=== PATIENT | female | born 1995 | race African-American/Black ===

== ENCOUNTER 2024-12-24 23:42 | Emergency (ER) | payer OTHER, SELFPAY ==
--- NOTE | ~2024-12-24 | CT_ITS ---
Non-contrast Head CT History: Headache, blurry vision Technique: Axial non-contrast imaging of the brain was performed. Dose reduction technique was used on this scan by utilizing automated exposure control and iterative reconstruction technique. The dose -length product (DLP) was 605.33 mGy-cm. Findings: There is no evidence of intracranial hemorrhage, mass lesion, or acute infarct. Brain par enchyma appears normal. The ventricles and subarachnoid spaces are normal in size. The calvarium ap pears normal. The visualized paranasal sinuses and mastoid air cells are clear. Impression: No significant abnormality seen. Reviewed, dictated and finalized at location . Impression: No significant abnormality seen.
--- NOTE | ~2024-12-24 | XR_ITS ---
Clinical Indication: Chest pain PA and lateral views of the chest: Comparison: None Findings: The lungs are clear, without evidence of focal consolidation or pleural effusion. Cardiome diastinal silhouette is within normal limits. Bones and soft tissues are unremarkable. Impression: Normal chest. Reviewed, dictated and finalized at location . Impression: Normal chest.
[2024-12-24 23:44] VITALS: BP 114/65; PULSE 101; RESP 20; TEMP 36.7; O2SAT 99
--- NOTE | 2024-12-24 23:50 | ECG_ITS ---
Test Date: 2024-12-24 23:54:07 Measurements Intervals [place] Rate: 81 P: 56 HI: 179 QRS: 72 QRSD: 89 T: 68 QT: 359 QTc: 418 Interpretive Statements SINUS RHYTHM NORMAL ECG No previous ECG available for comparison Electronically Signed On 12-25-2024 06:27:03 CDT by Calvin Greco D.O.
--- NOTE | 2024-12-25 01:17 | ED.CHESTPAIN ---
HPI - Chest Pain General Chief Complaint: Chest Pain Stated Complaint: CORREIA and chest pain Time Seen by Provider: 12/25/24 00:52 Source: patient Mode of arrival: EMS Limitations: no limitations History of Present Illness HPI narrative: Patient is a 29 y/o female who presents to the ED via EMS with report of CP/CORREIA. Patient reports she has had constant L sided CORREIA for past 3 days. She has hx of headaches earlier this year while with her daughter. She states today the pain became worse and she began having some blurry vision. She also endorses nausea, photophobia/phonophobia. Denies focal numbness or weakness. She has not taken anything for pain today. She also reports intermittent L sided chest pain for the past few days. States pain intermittently radiates down L arm. Reports some tingling in L arm, SOB. Denies fevers, cough or cold sx's. Related Data Allergies Allergy/AdvReac Type Severity Reaction Status Date / Time amoxicillin Allergy Difficulty Verified 12/25/24 01:51 Breathing Review of Systems Review of Systems: All systems reviewed & are unremarkable except as noted in HPI. All systems reviewed & are unremarkable except as noted in HPI and below Exam Narrative: GENERAL: Well appearing, well-nourished, non-toxic, in no acute distress. HEAD: Normocephalic, atraumatic. EYES: PERRL/EOMI, conjunctiva clear. No nystagmus NECK: No meningeal signs RESPIRATORY: Airway patent, respirations nonlabored. Clear to auscultation bilaterally, no rales, rhonchi, wheezing. CARDIOVASCULAR: Regular rate and rhythm without murmurs, rubs, or gallops. MUSCULOSKELETAL: Moves all extremities. No gross deformities. No significant chest wall tenderness to palpation. No peripheral edema. SKIN: Warm, dry, normal color. NEURO: A&O X3. Speech clear. Cranial nerves II-XII grossly intact. Steady gait. No ataxic movements. PSYCHIATRIC: Appropriate mood and affect. Normal interaction. Course Vital Signs Vital signs: Vital Signs Temperature 98.1 F 12/24/24 23:44 Pulse Rate 101 H 12/24/24 23:44 Respiratory Rate 20 12/24/24 23:44 Blood Pressure 114/65 12/24/24 23:44 Pulse Oximetry 99 12/24/24 23:44 Oxygen Delivery Room Air 12/24/24 23:44 Temperature 98.1 F 12/24/24 23:44 Pulse Rate 83 12/25/24 01:22 Respiratory Rate 20 12/24/24 23:44 Blood Pressure 114/65 12/24/24 23:44 Pulse Oximetry 97 12/25/24 01:26 Oxygen Delivery Room Air 12/25/24 01:26 MDM - Chest Pain MDM Narrative Medical decision making narrative: Patient presented to ED with 3 day hx of CORREIA and CP. Vital signs are stable upon arrival. Patient was borderline tachycardic initially, but this was resolved by the time of my evaluation. She is neurologically intact. No focal deficits. CT brain obtained and negative. Patient given migraine cocktail. EKG with NSR, no concerning ST changes. Troponin undetectable. Very low suspicion for ACS. Pain has been ongoing for the last 3 days. D-dimer WNL. HEART score =0. No signficant RFs for CAD Remainder basic laboratory studies are unremarkable. Chest x-ray interpreted by myself is clear. No focal findings. On re-evaluation, patient feeling improved. CORREIA significantly improved. Feel patient is safe for d/c home at this time. Advised to continue Tylenol/ibuprofen, recommended low light/low stimulus environment, limiting screen time. Recommended follow-up with PCP for further evaluation. Given strict return precautions. She agrees with plan. Discharged in stable condition. Medical Records Data Attestation: I reviewed the patient's medical records. Lab Data Attestation: I reviewed the patient's lab results. 12/24/24 01:17 12/25/24 01:17 Labs: Lab Results 12/24/24 12/25/24 12/25/24 Range/Units 01:17 01:17 01:17 WBC 8.4 (4.5-10.0) K/mm3 RBC 3.81 L (4.2-5.4) M/mm3 Hgb 12.0 (12.0-15.0) g/dL Hct 36.3 L (37.0-47.0) % MCV 95.3 (80-100) fl MCH 31.5 (26-34) pg MCHC 33.1 (32-36) g/dl RDW 13.5 (11.5-14.5) % Plt Count 345 (150-375) k/mm3 MPV 9.6 (7.4-10.4) fl Immature Gran % (Auto) 0.1 (0-0.5) % Neut % (Auto) 64.9 (45.5-73.1) % Lymph % (Auto) 24.4 (18.3-44.2) % [place] % (Auto) 8.8 H (2.6-8.5) % Eos % (Auto) 1.3 (0-4.4) % Baso % (Auto) 0.5 (0.2-1.2) % Lymph # (Auto) 2.05 (0.9-3.2) K/mm3 [place] # (Auto) 0.7 H (0.1-0.6) K/mm3 Eos # (Auto) 0.1 (0-0.3) K/mm3 Baso # (Auto) 0.0 (0.0-0.1) K/mm3 Abs Immat Gran (auto) 0.01 (0.00-0.031) K/mm3 Absolute Neuts (auto) 5.4 (1.3-6.7) K/mm3 Absolute Nucleated RBC 0.000 (0.0-0.012) K/mm3 Nucleated RBC % 0.0 (0.0-0.2) % PT 12.8 (11.1-14.7) Seconds INR 1.0 APTT 25.1 (22.3-36.8) Seconds D-Dimer < 0.27 Cancelled (<0.48) ug/mL Sodium 138 (137-145) mmol/L Potassium 4.0 (3.4-5.0) mmol/L Chloride 108 H (98-107) mmol/L Carbon Dioxide 24 (22-30) mmol/L Anion Gap 6 (4-12) mmol/L BUN 14 (7-17) mg/dL Creatinine 0.95 (0.7-1.0) mg/dL Estim Creat Clear Calc Not Reportable Estimated GFR > 60 (59 - ) Glucose 96 (65-110) mg/dL Calcium 9.1 (8.4-10.2) mg/dL Total Bilirubin 0.2 (0.2-1.3) mg/dL AST 23 (14-36) U/L ALT 18 (6-35) U/L Alkaline Phosphatase 77 (38-126) U/L Troponin I < 0.012 (0.000-0.034) ng/mL Total Protein 7.1 (6.3-8.2) g/dL Albumin 4.1 (3.5-5.1) g/dL Lipase 102 (23-300) U/L Imaging Data Attestation: I personally reviewed and interpreted this imaging study as follows: My impression: CXR: No acute cardiopulmonary process. Radiologist's impression: STAT RAD CT brain: No acute hemorrhage, hydrocephalus, or mass effect. Bones are unremarkable. No air-fluid levels in paranasal sinuses. Mastoid clear. ECG Data EKG #1: Attestation: I personally reviewed and interpreted this ECG as follows: ECG completion date: 12/24/24 ECG completion time: 23:54 EKG Interpretation: normal rate (81), sinus rhythm and no ST changes Discharge Plan Discharge Clinical Impression: Atypical chest pain Migraine Qualifiers: Migraine type: unspecified Status migrainosus presence: without status migrainosus Intractability: not intractable Qualified Code(s): G43.909 - Migraine, unspecified, not intractable, without status migrainosus Patient Disposition: Home Condition: Stable Instructions: Antibiotic Form, Chest Pain (ED), Migraine Headache (ED), Acute Headache (ED) Additional Instructions: Your work up here was reassuring. Continue to stay well hydrated at home, get plenty of rest, recommend low stress/stimulus/light environment, limited screen time. Continue Tylenol and Ibuprofen as needed for further pain. Follow-up with your primary care doctor for further evaluation. Return to ED for worsening or severe pain, difficulty breathing, unable to keep down food or drink, severe dizziness, passing out, numbness or weakness of arm or leg, or any other symptoms of concern. Patient Language: [place]ic Follow-up/Referrals: Robles Schreiber MD [Physician] - (PRIMARY CARE) PHYSICIAN,MOBILITY ENGINEER [Primary Care Provider] - Stand Alone Forms: Work/School Release IP Time of Disposition: 02:38 Quality HEART score for chest pain patients History: slightly suspicious ECG: normal Age: < or = to 45 years Risk factors: no risk factors known Troponin: < or = to 1x normal limit Heart score: 0
[2024-12-25 01:22] VITALS: PULSE 83
[2024-12-25 01:26] VITALS: O2SAT 97
[2024-12-25 01:38] LABS: Prothrombin Time 12.8 Seconds (11.1-14.7)
[2024-12-25 01:40] LABS: Partial Thromboplastin Time 25.1 Seconds (22.3-36.8)
--- OUTSIDE RECORDS SUMMARY | 2024-12-25 01:41 | XMS_ITS | Referral Summary ---
Author Organization [facility] Address [address] [place] [address] Care Team Providers Care Wardsperson Name Role Phone Daniel Camara MD Unavailable Chris Grant MD Unavailable [phone] Daniel Camara MD Primary Care Provider [phone] Encounters Date Type Department Care Team Description 12/18/2024 Results Follow-Up [facility] [address] [place] [address] Panchito Feldman MD Hepatitis B Surface Antigen Blood, Hepatitis C antibody Blood, RPR Blood, Additional followed-up results: 4 12/17/2024 6:56 PM CDT - 12/17/2024 11:59 PM CDT Hospital Encounter [facility] [address] [place] [address] Abnormal uterine bleeding (AUB); Screening examination for STI Discharge Disposition: Discharge to home or self care 12/17/2024 1:55 PM CDT Lab [facility] [address] [place], [place] [id number] Screening examination for STI; Abnormal uterine bleeding (AUB) 12/17/2024 11:20 AM CDT Lab [place] [address] [facility] [address] [place] [address] Menorrhagia with regular cycle 12/17/2024 1:00 PM CDT Office Visit [facility] Obstetrics and Gynecology [address] 1st [address] [place] [address] Panchito Feldman MD Abnormal uterine bleeding (AUB) (Primary Dx); Screening examination for STI; PID (pelvic inflammatory disease) 12/13/2024 Telephone [facility] Obstetrics and Gynecology [address] [facility] 7th [address] [place] [id number] Jaspal Hanson RN HMB from Last 3 Months Allergies Active Allergy Reactions Criticality Noted Date Comments Amoxicillin Chest tightness Medium 07/26/2022 Medications doxylamine-pyrido xine, vit B6, (DICLEGIS) 10-10 mg tabletIndications :Supervision of other normal , antepartum Take 1 tablet by mouth nightly 30 tablet 3 06/05/20 24 Active Additional Information Patient not taking.Reported on 12/17/2024 diphenhydrAMINE (BENADRYL) 25 mg capsule Take 1 tablet/capsule (25 mg total) by mouth every 6 (six) hours as needed for itching 30 capsule 07/14/20 24 Active Additional Information Patient not taking.Reported on 12/17/2024 metoclopramide (REGLAN) 10 mg tablet Take 1 tablet (10 mg total) by mouth every 8 (eight) hours as needed (Headache) for up to 30 doses 30 tablet 07/14/20 24 Active Additional Information Patient not taking.Reported on 12/17/2024 norethindrone (MICRONOR) 0.35 mg tabletIndications : Contraception Take 1 tablet (0.35 mg total) by mouth daily 1 po qd at same time of day 84 tablet 07/28/19 25 Active Additional Information Patient not taking.Reported on 12/17/2024 ferrous sulfate 325 mg (65 mg of elemental iron) tablet Take 1 tablet (325 mg total) by mouth daily with breakfast 30 tablet 07/30/19 25 026 Active Additional Information Patient not taking.Reported on 12/17/2024 docusate sodium (COLACE) 100 mg capsuleIndication s:constipation,St ool Softener Take 1 capsule (100 mg total) by mouth 2 (two) times a day 60 capsule 07/29/19 25 Active Additional Information Patient not taking.Reported on 12/17/2024 lidocaine (GLYDO) 2 % jelly in applicator Apply 5 mL (100 mg total) topically 2 (two) times a day as needed for other (perineal pain stitches) 1 applicator 07/29/19 25 Active Additional Information Patient not taking.Reported on 12/17/2024 PNV with [id number] 27 mg iron- 1 mg tabletIndications :Vitamin Deficiency Prevention Take 1 tablet by mouth daily 30 tablet 11 07/30/19 25 026 Active polyethylene glycol (MIRALAX) 17 gram/dose bulk powderIndications :constipation Take 17 g by mouth daily 510 g 07/29/19 25 Active Additional Information Patient not taking.Reported on 12/17/2024 cyclobenzaprine (FLEXERIL) 5 mg tablet Take 1 tablet (5 mg total) by mouth 3 (three) times a day as needed for muscle spasms 60 tablet 07/29/19 25 Active Additional Information Patient not taking.Reported on 12/17/2024 levoFLOXacin (LEVAQUIN) 500 mg tabletIndications :Urinary Tract/Genitourina ry Infection Take 1 tablet (500 mg total) by mouth daily for 14 days 14 tablet 12/18/19 25 025 Active metroNIDAZOLE (FLAGYL) 500 mg tabletIndications :PID (pelvic inflammatory disease) Take 1 tablet (500 mg total) by mouth 2 (two) times a day for 14 days 28 tablet 12/18/19 25 025 Active Active Problems Problem Noted Date Diagnosed Date Pelvic pressure in female 06/05/2024 Assessment & Plan (06/05/2024 1:29 PM ESCORT SERVICE ATTENDANT): Exam performed today significant for physiologic discharge External os 1 cm but internal os closed Swab for infection offered and collected Nontender abdomen Recommended support belt Reviewed [facility] precautions for R/o PTL Other chest pain 10/30/2023 Assessment & Plan (10/30/2023 2:32 PM CDT): -Reports chest pain that is not happening currently or reproducible on exam -Has shortness of breath with walking -BP 108/68 with otherwise unremarkable CV & pulm exam today -CBC, CMP, TSH, EKG ordered -Advised to follow up with PCP for further evaluation and management -ER return precautions reviewed with patient Marylin orozcoa 02/19/2019 Sinusitis 02/19/2019 Resolved Problems Problem Noted Date Diagnosed Date Resolved Date care following vaginal delivery 07/27/2024 12/17/2024 Overview (07/30/2024): # ID: Afebrile. No signs/symptoms of infection. # Heme: Hgb 11.7> EBL 300 mL. Hemodynamically stable. # CV/Pulm: #Gestational hypertension - Blood pressures well controlled on no meds. Asymptomatic, denies CORREIA/RUQ pain/vision changes. CBC/CMP wnl, UPC .103. Enrolled in remote blood pressure monitoring. Received text. # GI/: Tolerating PO. Voiding spontaneously. # Pain: controlled with above regimen # MOC: Progestin-only pills. # MOF: . Urine drug screen not indicated. Patient informed of results: N/A. # Post DVT prophylaxis: The patient has the following MAJOR risk factors none and the following MINOR risk factors BMI 30-39. SCDs ordered for VTE prophylaxis. # Disposition: Follow up to be scheduled with primary OB. Desires discharge home today Service Coverage These phones are service phones and carried 07/02 in house: R1 (first call) [phone] R1 alt (second call) [phone] R4 (Chief) [phone] Encounter for induction of labor 07/26/2024 12/17/2024 History of delivery 06/05/2024 12/17/2024 Assessment & Plan (06/05/2024 1:05 PM ESCORT SERVICE ATTENDANT): pLTCS 02/2018 for NRFHT at 39 wks Interested in TOLAC, reviewed risks and benefits of TOLAC including risk of uterine rupture Supervision of other normal , antepartum 05/23/2024 10/10/2024 Overview (07/19/2024): Pronounced See-ah-vivek -CARLOS @ 30wks, records in media -anatomy pg 12, nml, posterior placenta -h/o pLTCS for failure to progess during labor. 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 Expectant management: [x] Mode of delivery: desire TOLAC [] For C/S bottle of CHG 4% and hand out provided @ 36wks Girl, , undecided on peds Teaching: [x] 1st visit [x] 28-30 week [x] 36 week Assessment & Plan (06/05/2024 1:28 PM ESCORT SERVICE ATTENDANT): - FHT performed today - labs collected by [facility], multiple attempts to get records, will order labs now, pt reports completing the GCT and passing it but will order A1c - Pap NILM, 07/2022, screening in 2025 - GC/CT/trichomonas negative on 04/2024, recollected today given pelvic pressure - Reviewed criteria for ASA 81mg, not taking ASA this , taking a vitamin - Flu and Covid vaccination recommendations reviewed, plan for flu vaccine and Tdap today - Genetic screening not performed - Education on care and expectations provided by OB RN Encounter for general allison valero and advice on contraceptive management 10/30/2023 10/30/2023 Assessment & Plan (10/30/2023 2:28 PM CDT): -We reviewed contraception options, including, but not limited to, condoms, OCP's, contraceptive patch/ring, DepoProvera, sterilization, IUD and Nexplanon. After review of her risks factors, patient would like to consider Nexplanon or IUD. She will contact our office to schedule possible placement in 1-2 months UTI symptoms 10/30/2023 05/23/2024 Assessment & Plan (10/30/2023 2:31 PM CDT): -Dysuria and urine leakage -UA/UCx ordered to rule out UTI. Will treat as indicated. Pap smear for cervical cancer screening 10/12/2023 05/23/2024 Assessment & Plan (10/12/2023 4:52 PM CDT): Previous cytology/HPV/colposcopy/treatment History: -12/2019: Pap NILM -07/2022: Pap NILM Per ASCCP guidelines, repeat Pap smear due in 3 years (07/2025). HPV Vaccine Series: Well woman exam 10/12/2023 10/30/2023 Assessment & Plan (10/30/2023 2:27 PM CDT): -STI screening: GC/CT/Trich swabs today. Desires serum testing; HIV, RPR, HBsAg, HCV Ab labs ordered. -Mammogram: not due until age 40 -Colonoscopy: Not due until age 45 -Dexa: Not due until age 65 -Reviewed AHA recommendation of 150 minutes of moderate-intensity activity per week -Counseled on consuming varied diet rich in whole grains and fruits/vegetables -Covid-19 and influenza vaccination recommendations reviewed, declines fall 2022 vaccines Candidiasis of vagina 02/19/20192019 Increased frequency of urination 02/19/2019 01/10/2020 Encounter for initial prescr iption of contraceptive pills 05/31/2018 01/10/2020 39 weeks gestation of 02/24/2018 01/10/2020 Overview (02/24/2018): #Labor: Admit to L&D. Consents signed and placed in chart. Send CBC/T&S. Initially expectantly managed, now will begin Labor augmentation with oxytocin. #FWB: tracing category II #ID: GBS positive, will start PCN. HIV negative. #Indications for UDS: none #M/B: Plans to breastfeed. Undecided on contraception. 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 May stop growth scans. Co-manage with FCC [x] 1hr GCT at [id number] [] Flu Shot [x] Tdap (27-36wks) 11/29/17 [x] Genetic Screening: negative flk [] Rhogam (if Rh neg): B+ [x] GBS at 36 wks: + [x] information provided [] control method: 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 11/09/2017 01/10/2020 with complication, antepartum 10/21/2017 01/10/2020 Normal 07/22/2017 12/20/2017 Chlamydia 01/10/2020 Overview (01/10/2020): previous PG Immunizations Immunization Administration Dates Next Due DTP 07/09/2002 DTaP 07/28/1999, 9,03/20/1998,12/06 Hep B / HiB 07/28/1999,09/08/1998,1997 Hep B, Adolescent or Pediatric 1995 HiB 03/20/1998 IPV 07/09/2002, 0,07/28/1999,03/20,1997 Influenza, Trivalent, Cell Culture-based MDCK, Preservative Free, Antibiotic Free, Intramuscular 06/05/2024 Influenza, Trivalent, High D ose, Split, Preservative Free, Intramuscular 04/28/2016 MMR 07/30/2024(Deferred: No longer needed),07/09/2002,09/25/1998 RSV, Bivalent, Protein Subun it Rsvpref, Diluent (Abrysvo) 06/22/2024 Tdap 06/05/2024,11/29/2017 Varicella 07/30/2024(Deferred: No longer needed),03/04/2009,09/25/1998 Social History Tobacco Use Types Packs/Day Years Used Date Smoking Tobacco: Never Smokeless Tobacco: Never Tobacco Cessation:Counseling Given: Not Answered Alcohol Use Standard Drinks/Week Comments No 0 (1 standard drink = 0.6 oz pur e alcohol) Social Connection and Isolat ion Panel [NHANES] Answer Date Recorded In a typical week, how many times do you talk on the phone with family, friends, or neighbors? More than three times a week 07/28/2024 How often do you get togethe r with friends or relatives? More than three times a week 07/28/2024 How often do you attend chur or temple services? 1 to 4 times per year 07/28/2024 Do you belong to any clubs o r organizations such as restoration groups, unions, fraternal or athletic groups, or school groups? No 07/28/2024 How often do you attend meet ings of the clubs or organizations you belong to? Never 07/28/2024 Are you , , di vorced, , never , or living with a partner? Never 07/28/2024 AUDIT-C Answer Date Recorded Q1: How often do you have a drink containing alc ohol? Monthly or less 10/12/2023 Q2: How many drinks containi ng alcohol do you have on a typical day when you are drinking? 1 or 2 10/12/2023 Q3: How often do you have si x or more drinks on one occasion? Never 10/12/2023 Overall Financial Resource Strain (CARDIA) Answe r Date Recorded How hard is it for you to pa y for the very basics like food, housing, medical care, and heating? Somewhat hard 07/28/2024 PHQ-2 Answer Date Recorded PHQ-2 Total Score (If total score is 3 or more points, staff should administer the PHQ-9) 0 07/28/2024 Exercise Vital Sign Answer Date Recorde d On average, how many days pe r week do you engage in moderate to strenuous exercise (like a brisk walk)? 2 days 10/12/2023 On average, how many minutes do you engage in exercise at this level? 30 min 10/12/2023 Hunger Vital Sign Answer Date Recorded Within the past 12 months, y ou worried that your food would run out before you got the money to buy more. Never true 07/28/19 25 Within the past 12 months, t he food you bought just didn't last and you didn't have money to get more. Never true 07/28/2024 PRAPARE - Transportation Answer Date Re corded In the past 12 months, has l ack of transportation kept you from medical appointments or from getting medications? Yes 07/18 In the past 12 months, has l ack of transportation kept you from meetings, work, or from getting things needed for daily living? Yes 07/28/2024 Housing Stability Vital Sign Answer [place] e Recorded In the last 12 months, was t here a time when you were not able to pay the mortgage or rent on time? No 07/28/2024 In the past 12 months, how m any times have you moved where you were living? 1 07/28/2024 At any time in the past 12 m [facility], were you homeless or living in a intermediate (including now)? No 07/28/2024 Personal Safety Answer Date Recorded Have you ever been in or are you currently in a harmful physical or emotional relationship or is someone making you feel afraid or unsafe? Denies 09/01/2024 Comments No Sex and Gender Information Value Date Recorded Sex Assigned at Not on file Legal Sex Female 10:35 PM ESCORT SERVICE ATTENDANT Gender Identity Not on file Sexual Orientation Not on file Occupation Industry Job Start Date Job End Date [employer] Student & [employer] Not on file Not on file Not on file Last Filed Vital Signs Vital Sign Reading Time Taken Comments Blood Pressure 117/70 12/17/2024 1:10 PM CDT Pulse 78 12/17/2024 1:10 PM CDT Temperature 36.9 C (98.4 F) 09/01/2024 1:50 PM ESCORT SERVICE ATTENDANT Respiratory Rate 18 09/01/2024 1:50 PM ESCORT SERVICE ATTENDANT Oxygen Saturation 99% 09/01/2024 2:30 PM ESCORT SERVICE ATTENDANT Inhaled Oxygen Concentration - - Weight 81.2 kg (179 lb) 12/17/2024 1:10 PM CDT Height 165.1 cm (5' 5) 12/17/2024 1:10 PM CDT Body Mass Index 29.79 12/17/2024 1:10 PM CDT Plan of Treatment Not on file Procedures Procedure Name Priority Date/Time Associated Diagnosis Comments N. GONORRHOEAE/C. TRACHOMATIS AMPLIFICATION Routine 12/17/2024 7:04 PM CDT Abnormal uterine bleeding (AUB) Screening examination for STI TRICHOMONAS VAGINALIS PCR Routine 12/17/2024 7:04 PM CDT Abnormal uterine bleeding (AUB) THINPREP PROCESSING (MOLECULAR COMPONENT) Routine 12/17/2024 2:41 PM CDT Abnormal uterine bleeding (AUB) THYROID FUNCTION CASCADE Routine 12/17/2024 2:06 PM CDT Abnormal uterine bleeding (AUB) HIV 1/2 ANTIBODY PLUS P24 ANTIGEN Routine 12/17/2024 2:06 PM CDT Screening examination for STI RPR Routine 12/17/2024 2:06 PM CDT Screening examination for STI HEPATITIS C ANTIBODY Routine 12/17/2024 2:06 PM CDT Screening examination for STI HEPATITIS B SURFACE ANTIGEN Routine 12/17/2024 2:06 PM CDT Screening examination for STI CBC WITHOUT DIFFERENTIAL Routine 12/17/2024 11:33 AM CDT Menorrhagia with regular cycle FERRITIN Routine 12/17/2024 11:33 AM CDT Menorrhagia with regular cycle PAP ONLY Routine 07/26/2022 3:58 PM ESCORT SERVICE ATTENDANT Well woman exam from Last 3 Months or Most Recently Relevant to Health Maintenance Results * N. gonorrhoeae/C. trachomatis Amplification Endocervical (12/17/2024 7:04 PM CDT) C. trachomatis Not Detected [facility] N. gonorrhoeae Not Detected [facility] Comment: Interpretive Data This assay detects Chlamydia trachomatis and Neisseria gonorrhoeae by nucleic acid amplification testing (NAAT). This assay has been cleared by the [place] Food and Drug administration. The performance characteristics of this test have been verified by the [facility] Infectious Disease laboratory. The performance characteristics of this test have not been evaluated in individuals less than 14 years of age. Current Interpretive Data was last revised on 2023. Endocervical (None) 12/18/19 7:04 PM CDT 12/17/2024 7:39 PM CDT Panchito Feldman MD LAB MICROBIOLOGY - GENERA L ORDERABLES Final Result Performing Organization Address [facility] de Phone Number [facility] [place] [address] [facility] * Trichomonas vaginalis PCR Endocervical (12/17/2024 7:04 PM CDT) Pathologist [facility] Trichomonas DNA Not Detected [facility] Comment: Interpretive Data This assay detects Trichomonas vaginalis by nucleic acid amplification testing (NAAT). This assay has been cleared by the [facility] Food and Drug administration. The performance characteristics of this test have been verified by the [facility] Infectious Disease laboratory. The performance of this test has not been evaluated in individuals less than 18 years of age. Current Interpretive Data was last revised on 2023. Endocervical 12/17/2024 7:04 PM CDT 12/17/2024 7:39 PM CDT Panchito Feldman MD LAB MICROBIOLOGY - GENERA L ORDERABLES Final Result Performing Organization Address [facility] Co de Phone Number [facility] [place] [address] [facility] * ThinPrep processing (Molecular component) (12/17/2024 2:41 PM CDT) [facility] ThinPrep processing (Molecular component) Specimen received for processing. [facility] Endocervical 12/17/2024 2:41 PM CDT 12/19/2024 10:56 AM CDT Panchito Feldman MD LAB BODY FLUIDS AND STOOL S ORDERABLES Final Result Performing Organization Address City/State/[facility] Co de Phone Number [facility] [place] [address] [facility] * Thyroid Function [place] (12/17/2024 2:06 PM CDT) [facility] TSH 0.37 0.30 - 4.20 mcIUnit/mL Blood 12/17/2024 2:06 PM CDT 12/17/2024 4:00 PM CDT Panchito Feldman MD LAB BLOOD ORDERABLES Ghazal l Result [facility] [place] [address] * HIV 1/2 Antibody plus p24 Antigen Blood (12/17/2024 2:06 PM CDT) [facility] HIV 1/2 ab + p24 ag Nonreactive Nonreactive Comment:Nonreactive for HIV- 1 antigen and HIV-1/HIV-2 antibodies. No laboratory evidence of HIV infection. If acute HIV infection is suspected, consider testing for HIV-1 RNA. Current interpretive data was last revised on 22. Blood 12/17/2024 2:06 PM CDT 12/17/2024 4:00 PM CDT Panchito Feldman MD LAB MICROBIOLOGY - GENERA L ORDERABLES Final Result Performing Organization Address [facility] Co de Phone Number [facility] [place] [address] * Hepatitis C antibody Blood (12/17/2024 2:06 PM CDT) Hep C Ab Nonreactive Nonreactive Comment:Antibodies to HCV no t detected. Does NOT exclude the possibility of recent exposure to HCV. Current interpretive data was last revised on 22 Blood 12/17/2024 2:06 PM CDT 12/17/2024 4:00 PM CDT us Panchito Feldman MD LAB MICROBIOLOGY - GENERA L ORDERABLES Final Result Performing Organization Address [facility] [place] [address] * RPR Blood (12/17/2024 2:06 PM CDT) Pathologist [facility] RPR Nonreactive Nonreactive Blood 12/17/2024 2:06 PM CDT 12/17/2024 4:00 PM CDT us Panchito Feldman MD LAB MICROBIOLOGY - GENERA L ORDERABLES Final Result Performing Organization Address [facility] Co de Phone Number [facility] [place] [address] * Hepatitis B Surface Antigen Blood (12/17/2024 2:06 PM CDT) HepBsAg Nonreactive Nonreactive Blood 12/17/2024 2:06 PM CDT 12/17/2024 4:00 PM CDT us Panchito Feldman MD LAB MICROBIOLOGY - GENERA L ORDERABLES Final Result Performing Organization Address [facility] Co de Phone Number [facility] [place] [address] * CBC without differential (12/17/2024 11:33 AM CDT) [facility] WBC 4.30 3.80 - 9.90 K/cumm Hgb 12.9 11.9 - 15.5 g/dL [facility] Hct 39.2 35.6 - 45.5 % [facility] Plt 350 150 - 400 K/cumm [facility] MPV 10.1 9.1 - 12.3 fL [facility] RBC 4.17 3.90 - 5.20 M/cumm [facility] MCV 94.0 81.3 - 96.4 fL [facility] MCH 30.9 27.1 - 33.3 pg [facility] MCHC 32.9 32.3 - 35.7 g/dL [facility] RDW CV 13.4 11.1 - 14.9 % [facility] RDW SD 46.5 35.7 - 48.1 fL [facility] NRBC abs 0.00 0.00 - 0.01 K/cumm [facility] Blood 12/17/2024 11:3 3 AM CDT 12/17/2024 2:01 PM CDT Yandy Cosby MD LAB BLOOD ORDERABLES Final Result Performing Organization Address City/[facility] Co de Phone Number [facility] [place] [address] * Ferritin (12/17/2024 11:33 AM CDT) [facility] Ferritin 23 13 - 150 ng/mL Blood 12/17/2024 11:3 3 AM CDT 12/17/2024 1:59 PM CDT Yandy Cosby MD LAB BLOOD ORDERABLES Final Result [facility] [place] [address] * Pap Only (07/26/2022 3:58 PM ESCORT SERVICE ATTENDANT) Thin prep (Pap test) 07/26/2022 3:58 PM ESCORT SERVICE ATTENDANT 07/26/2022 5:46 PM ESCORT SERVICE ATTENDANT Narrative PATHOLOGY [facility] - 08/05/2022 4:37 PM ESCORT SERVICE ATTENDANT EPIC results best viewed via link to PDF [facility] [place] [address] Note to Patients: This report may contain a detailed description of human tissue sent by a health care provider to the laboratory for pathologic evaluation. The content of this report is essential for diagnosis and may provide important critical findings. This information may be unfamiliar to patients to review without a medical professional present. It is advised that the patient review this report in the presence of a health care provider who can answer questions and explain the details. CYTOPATHOLOGY REPORT FINAL Patient Name: HANSA BARBOZA Gender: F : 1995 (Age: 26) Address: [address] [place] [id number] [facility] #: [id number] Service: MICA PATCHER Location: Patient Type: [facility] SPECIMEN Taken: 07/26/2022 Received: 07/26/2022 Accessioned: 07/27/2022 Reported: 08/05/2022 Physician(s): Devorah Carrera M.D. FINAL INTERPRETATION SOURCE OF SPECIMEN: Liquid based Thin Prep pap STATEMENT OF ADEQUACY: - Satisfactory for evaluation - Endocervical cells/transformation zone sample present GENERAL CATEGORY: - Negative for squamous intraepithelial lesion or malignancy This specimen has been rescreened in accordance with this laboratory's Student Financial Aid Manager Program. /08/05/2022 16:37 TAMIKO Mcclain(ASCP) Report Electronically Reviewed and Signed Out By Aixa Edgar MS CT (ASCP) 08/05/2022 16:37:25 Cervicovaginal Cytology (Pap Test) Disclaimer: The Pap test is a screening test used to detect cervical cancer and its precursors; it is not a diagnostic procedure. False negative and false positive results do occur. Pap test results should be interpreted in the context of pertinent clinical information and biopsy results as indicated. Gross Description A. Liquid based Thin Prep pap: Cervical/vaginal - Screening ThinPrep Clinical Diagnosis and History Last Menstrual Period: 07/26/2022 The patient is a 26 year old woman with a WWE, last pap 202 NILM. The Gonorrhea/Chlamydia test was performed by [facility], [address] [place] [address]. Report Images and scanned documents, if included only viewable in PDF version The performance characteristics of some immunohistochemical stains, in-situ hybridization and fluorescence in-situ hybridization tests and immunophenotyping by flow cytometry cited in this report (if any) were determined by the Surgical Pathology Department at [facility] as part of an ongoing quality associate program and in compliance with federally mandated regulations drawn from the Clinical Laboratory Improvement Act of 1988 (CLIA '88). Some of these tests rely on the use of analyte specific reagents and are subject to specific labeling requirements by the US Food and Drug Administration. Such diagnostic tests may only be performed in a facility that is certified by the Department of Health and Human Services as a high complexity laboratory under CLIA '88. The FDA has determined that such clearance or approval is not necessary. This test is used for clinical purposes. It should not be regarded as investigational or for research. Nevertheless, federal rules concerning the medical use of analyte specific reagents require that the following disclaimer be attached to the report: This test was developed and its performance characteristics determined by the Surgical Pathology Department of [facility]. It has not been cleared or approved by the U. S. Food and Drug Administration. Devorah Carrera NP LAB CYTOLOGY ORDERABLES nal Result PATHOLOGY [facility] 3rd Floor [place], [place] [phone] from Last 3 Months or Most Recently Relevant to Health Maintenance Insurance IDPA [id number] [facility] [place] [id number] [facility] Advance Directives For more information, please contact: [phone] * Full Code (Latest Code Status on File) Date Activated Date Inactivated Comments 07/27/2024 3:24 PM 07/30/2024 8:47 PM * Full Code Date Activated Date Inactivated Comments 07/26/2024 9:39 PM 07/27/2024 3:24 PM Full CPR in c ase of cardiopulmonary arrest * Full Code Date Activated Date Inactivated Comments 02/24/2018 9:57 AM 02/28/2018 4:27 PM * Full Code Date Activated Date Inactivated Comments 02/23/2018 4:22 PM 02/24/2018 9:56 AM Full CPR in c ase of cardiopulmonary arrest Care Teams Wardsperson Relationship Specialty Start Date End Date Daniel Camara MD [address] [place] [address] PCP - General 12/14/17 Daniel Camara MD [address] [place] [address] 10/25/17 Chris Grant MD [address] [place] [address] 09/04/17
--- OUTSIDE RECORDS SUMMARY | 2024-12-25 01:41 | XMS_ITS | Encounter Summary ---
Author Organization [facility] Healthcare Address [address] [place] [address] Care Team Providers Care Science Manager Name Role Phone Daniel Camara MD Unavailable Chris Grant MD Unavailable [phone] Daniel Camara MD Primary Care Provider [phone] Encounter Details Date Type Department Care Team (Late st Contact Info) Description 12/18/2024 Results Follow-Up [facility] [address] [place] [id number] Panchito Feldman MD [address] [address] Hepatitis B Surface Antigen Blood, Hepatitis C antibody Blood, RPR Blood, Additional followed-up results: 4 Social History Tobacco Use Types Packs/Day Years Used Date Smoking Tobacco: Never Smokeless Tobacco: Never Alcohol Use Standard Drinks/Week Comments No 0 [...] 07/28/2024 How often do you attend chur ch or jew services? 1 to 4 times per year 07/28/2024 Do you belong to any clubs o r organizations such as pentecostal groups, unions, fraternal or athletic groups, or [...] any time in the past 12 m [facility], were you homeless or living in a residential (including now)? No 07/28/2024 Personal Safety Answer Date Recorded Have you ever been in or are you currently in a harmful physical or emotional relationship or is someone making you feel afraid or unsafe? 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
--- OUTSIDE RECORDS SUMMARY | 2024-12-25 01:41 | XMS_ITS | CONTINUITY OF CARE DOCUMENT ---
Author Name goyo nance Address Unknown Organization [facility] Address [address] [place] [address] Phone [phone] Care Team Providers Care Offal Trimmer Name Role Phone Audrey Asher MD Unavailable Audrey Asher MD Unavailable INSURANCE PROVIDERS Payer name Policy type / Coverage type [place] red libertarian [place] MEDICAID (2) Medicaid [id number]
--- OUTSIDE RECORDS SUMMARY | 2024-12-25 01:41 | XMS_ITS | Clinical Summary ---
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 Gender Identity Not on file Sexual Orientation Not on file Plan of Treatment Health Maintenance Due Date Last Done Comments Hepatitis C Virus (HCV) Screening 1997 TdaP Immunization 1997 Human Papillomavirus (HPV) Immunization (1 - 3-dose series) 2012 Hepatitis B Immunization (1 of 3 - 19+ 3-dose series) 2016 Pap Smear 2018 Influenza Immunization (#1) 2024 SARS-COV-2 Immunization ( season) 2024 Respiratory Syncytial Virus (RSV) Immunization (Adult) (1 - 1-dose 75+ series) 2072 Meningococcal Immunization (ACWY) Aged Out No longer eligible based on patient's age to complete this topic Pneumococcal Immunization Combined Aged Out No longer eligible based on patient's age to complete this topic Rotavirus Immunization Aged Out No lo nger eligible based on patient's age to complete this topic
--- OUTSIDE RECORDS SUMMARY | 2024-12-25 01:41 | XMS_ITS | Clinical Summary ---
Author Organization [facility] Address [address] [place] [address] Care Team Providers Care Kiln Tester Name Role Phone Daniel Camara MD Unavailable Chris Grant MD Unavailable [phone] Daniel Camara MD Primary Care Provider [phone] Allergies Active Allergy Reactions Criticality Noted Date [...] other (perineal pain stitches) 1 applicator 07/29/19 Active Additional Information Patient not taking.Reported on 12/17/2024 PNV with [id number] 27 mg iron- 1 mg tabletIndications :Vitamin Deficiency Prevention Take 1 tablet by mouth daily 30 tablet 07/30/19 026 Active polyethylene glycol (MIRALAX) 17 gram/dose [...] 06/05/2024 Assessment & Plan (06/05/2024 1:29 PM TRAFFIC MAINTENANCE OFFICER): Exam performed today significant for physiologic discharge External os 1 cm but internal os closed Swab for infection offered and collected Nontender abdomen Recommended support belt Reviewed [place] precautions for R/o PTL Other chest pain [...] carried 07/02 in house: R1 (first call) [phone] R1 alt (second call) [phone] R4 (Chief) [phone] Encounter for induction of labor 07/26/2024 12/17/2024 History of delivery 06/05/2024 12/17/2024 Assessment & Plan (06/05/2024 1:05 PM TRAFFIC MAINTENANCE OFFICER): pLTCS 02/2018 for NRFHT at 39 wks [...] week Assessment & Plan (06/05/2024 1:28 PM TRAFFIC MAINTENANCE OFFICER): - FHT performed today - labs collected [...] Co-manage with FCC [x] 1hr GCT at [id number] [] Flu Shot [x] Tdap (27-36wks) 11/29/17 [x] Genetic Screening: negative flk [] Rhogam (if Rh neg): B+ [x] GBS at 36 wks: + [x] information provided [] control method: 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 11/09/2017 01/10/2020 with complication, antepartum 10/21/2017 01/10/2020 Normal 07/22/2017 12/20/2017 Chlamydia 01/10/2020 Overview (01/10/2020): previous PG Encounters Date Type Department Care Team Description 12/18/2024 Results Follow-Up [facility] [address] [place] [address] Panchito Feldman MD Hepatitis B Surface Antigen Blood, Hepatitis C antibody Blood, RPR Blood, Additional followed-up results: 4 12/17/2024 6:56 PM CDT - 12/17/2024 11:59 PM CDT Hospital Encounter [address] [address] Abnormal uterine bleeding (AUB); Screening examination for STI Discharge Disposition: Discharge to home or self care 12/17/2024 1:55 PM CDT Lab [facility] [address] [place] [address] [address] [place] [address] Screening examination for STI; Abnormal uterine bleeding (AUB) 12/17/2024 1:00 PM CDT Office Visit [facility] Obstetrics and Gynecology [address] 1st Floor [address] [place] [address] Panchito Feldman MD Abnormal uterine bleeding (AUB) (Primary Dx); Screening examination for STI; PID (pelvic inflammatory disease) 12/17/2024 11:20 AM CDT [facility] [address] [place] [address] [address] [place] [address] Menorrhagia with regular cycle 12/13/2024 Telephone [facility] Obstetrics and Gynecology [facility] 7th Floor [address] [place] [address] Jaspal Hanson RN HMB from Last 3 Months Immunizations Immunization Administration Dates Next Due DTP [...] Tdap 06/05/2024,11/29/2017 Varicella 07/30/2024(Deferred: No longer needed),03/04/2009,09/25/1998 Surgical History Surgery Date Site/Laterality Comments SECTION 02/24/2018 Medical History Medical History Date Comments Missed Missed - (Added by TW Conv) Chlamydia previous PG Family History Medical History Relation Name Comments No Known Problems Father Endometriosis Mother Sickle cell anemia Sister 1 Family hi story of sickle cell anemia - (Added by TW Conv) Sickle cell trait Sister 2 Family his tory of sickle cell trait - (Added by TW Conv) Anesthesia problems Neg Hx Breast cancer Neg Hx Clotting disorder Neg Hx Colon cancer Neg Hx Ovarian cancer Neg Hx Pancreatic cancer Neg Hx Uterine cancer Neg Hx Relation Name Status Comments Father Mother Sister 1 Sister 2 Social History Tobacco Use Types Packs/Day Years [...] week 07/28/2024 How often do you attend [facility] or restorationist services? 1 to 4 times per year 07/28/2024 Do you belong to any clubs o r organizations such as mandaeism groups, unions, fraternal or athletic groups, or [...] any time in the past 12 m [facility], were you homeless or living in a snf (including now)? No 07/28/2024 Personal Safety Answer Date Recorded Have you ever been in or are you currently in a harmful physical or emotional relationship or is someone making you feel afraid or unsafe? 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 Not on file Not on file Not on file Obstetrics History Para Term AB IAB SAB Ectopic Multiple Livin g Live Births 3 2 2 0 1 0 1 0 0 2 2 Date Outcome GA Total Labor Labor/2nd/3rd Weight Sex Type Anes PTL Kristy A1 A5 Name Clin 7 SAB 2017 Term 39w 5d 0h 01m 0h 01m 2.76 kg (6 lb 1.4 oz) F CS-LTr anv Epidur al,Spi nal,Ge neral N Livin g 1 3 RIVER S,GIR LCAHJ EE Cecilio gibbs, Carolina Bella MD Complications: Intolera nce,Skeletal dysplasia Delivery Location:[facility] ([facility] 58LD) 2024 Term 37w 6d 0h 03m 0h 03m 2.615 kg (5 lb 12.2 oz) F Vagina l Epidur al N Livin g 8 9 Ceh'T orra Aníbal Mayela Campos MD Complications:None Delivery Location:[facility] ([facility] 58LD) Comments [id number] of baby girl-b/ l periurethrals, 2nd degree lac, EBL 300 Last Filed Vital Signs Vital Sign Reading Time Taken Comments Blood Pressure 117/70 12/17/2024 1:10 PM CDT Pulse 78 12/17/2024 1:10 PM CDT Temperature 36.9 C (98.4 F) 09/01/2024 1:50 PM TRAFFIC MAINTENANCE OFFICER Respiratory Rate 18 09/01/2024 1:50 PM TRAFFIC MAINTENANCE OFFICER Oxygen Saturation 99% 09/01/2024 2:30 PM TRAFFIC MAINTENANCE OFFICER Inhaled Oxygen Concentration - - Weight 81.2 kg (179 lb) 12/17/2024 1:10 PM CDT Height 165.1 cm (5' 5) 12/17/2024 1:10 PM CDT Body Mass Index 29.79 12/17/2024 1:10 PM CDT Plan of Treatment Health Maintenance Due Date Last Done Comments Cervical Cancer Screening 07/26/2023 07/26/2022 Regular Well Visit/Exam 18-64 10/11/2024 10/12/2023, 06/05/2021, 01/10/2020 Depression Screening 07/15/2025 07/15/2024, 05/31/20 18 DTaP/Tdap/Td Vaccine (9 - Td or Tdap) 06/05/2034 06/05/2024, 11/16/2023, 11/29/2017, Additional history exists Hepatitis B Screening Completed 07/28/1999 , 09/08/1998, 1997, Additional history exists Varicella Vaccines Completed 03/04/2009, 09/25/1998 Influenza Vaccine Completed 06/05/2024, 04/28/2016 Hepatitis C Screening Completed 12/17/2024 , 07/26/2024, 10/12/2023, Additional history exists HPV Vaccines Aged Out No longer eligi ble based on patient's age to complete this topic Pneumococcal vaccine <65 Aged Out No longer eligible based on patient's age to complete this topic Procedures Procedure Name Priority Date/Time Associated Diagnosis [...] cycle PAP ONLY Routine 07/26/2022 3:58 PM TRAFFIC MAINTENANCE OFFICER Well woman exam from Last 3 Months or Most Recently Relevant to Health Maintenance Results * N. gonorrhoeae/C. trachomatis Amplification Endocervical (12/17/2024 7:04 PM CDT) C. trachomatis Not Detected [facility] N. gonorrhoeae Not Detected [facility] Comment: Interpretive Data This assay detects Chlamydia trachomatis and Neisseria gonorrhoeae by nucleic acid amplification testing (NAAT). This assay has been cleared by the [place] Food and Drug administration. The performance characteristics of this test have been verified by the [facility] Molecular Infectious Disease laboratory. The performance characteristics of this test have not been evaluated in individuals less than 14 years of age. Current Interpretive Data was last revised on 2023. Endocervical (None) 12/18/19 25 7:04 PM CDT 12/17/2024 7:39 PM CDT Panchito Feldman MD LAB MICROBIOLOGY - GENERA L ORDERABLES Final Result [facility] Department [place] [address] [facility] * Trichomonas vaginalis PCR Endocervical (12/17/2024 7:04 PM CDT) Pathologist [facility] Trichomonas DNA Not Detected [facility] Comment: Interpretive Data This assay detects Trichomonas vaginalis by nucleic acid amplification testing (NAAT). This assay has been cleared by the [place] Food and Drug administration. The performance characteristics of this test have been verified by the [facility] Molecular Infectious Disease laboratory. The performance of this test has not been evaluated in individuals less than 18 years of age. Current Interpretive Data was last revised on 2023. Endocervical 12/17/2024 7:04 PM CDT 12/17/2024 7:39 PM CDT Panchito Feldman MD LAB MICROBIOLOGY - GENERA L ORDERABLES Final Result Performing Organization Address City/[facility] Co de Phone Number [facility] [place] [address] [facility] * ThinPrep processing (Molecular component) (12/17/2024 2:41 PM CDT) [facility] ThinPrep processing (Molecular component) Specimen received for processing. [facility] Endocervical 12/17/2024 2:41 PM CDT 12/19/2024 10:56 AM CDT Panchito Feldman MD LAB BODY FLUIDS AND STOOL S ORDERABLES Final Result Performing Organization Address [facility] de Phone Number [facility] [place] [address] [facility] * Thyroid Function [place] (12/17/2024 2:06 PM CDT) [facility] TSH 0.37 0.30 - 4.20 mcIUnit/mL Blood 12/17/2024 2:06 PM CDT 12/17/2024 4:00 PM CDT Panchito Feldman MD LAB BLOOD ORDERABLES Ghazal l Result Performing Organization Address [facility] [place] [address] * HIV 1/2 Antibody plus p24 Antigen Blood (12/17/2024 2:06 PM CDT) [facility] HIV 1/2 ab + p24 ag [...] L ORDERABLES Final Result Performing Organization Address City/[facility] Co de Phone Number [facility] [place] [address] * Hepatitis C antibody Blood (12/17/2024 2:06 PM CDT) Hep C Ab Nonreactive Nonreactive Comment:Antibodies to HCV no t detected. Does NOT exclude the possibility of recent exposure to HCV. Current interpretive data was last revised on 22 Blood 12/17/2024 2:06 PM CDT 12/17/2024 4:00 PM CDT us Panchito Feldman MD LAB MICROBIOLOGY - [employer] L ORDERABLES Final Result Performing Organization Address City/[facility] Co de Phone Number [facility] [place] [address] * RPR Blood (12/17/2024 2:06 PM CDT) RPR Nonreactive Nonreactive Blood 12/17/2024 2:06 PM CDT 12/17/2024 4:00 PM CDT Panchito Feldman MD LAB MICROBIOLOGY - GENERA L ORDERABLES Final Result Performing Organization Address City/[facility] Co de Phone Number [facility] [place] [address] * Hepatitis B Surface Antigen Blood (12/17/2024 2:06 PM CDT) Pathologist [facility] HepBsAg Nonreactive Nonreactive Blood 12/17/2024 2:06 PM CDT 12/17/2024 4:00 PM CDT us Panchito Feldman MD LAB MICROBIOLOGY - GENERA L ORDERABLES Final Result Performing Organization Address City/[facility]/ZIP Co de Phone Number [facility] Department [place] [address] [address] * CBC without differential (12/17/2024 11:33 AM CDT) [facility] WBC 4.30 3.80 - 9.90 K/cumm Hgb 12.9 11.9 - 15.5 g/dL [facility] Hct 39.2 35.6 - 45.5 % [facility] Plt 350 150 - 400 K/cumm [facility] MPV 10.1 9.1 - 12.3 fL [facility] RBC 4.17 3.90 - 5.20 M/cumm [facility] MCV 94.0 81.3 - 96.4 fL [facility] MCH 30.9 27.1 - 33.3 pg [facility] MCHC 32.9 32.3 - 35.7 g/dL [facility] RDW CV 13.4 11.1 - 14.9 % [facility] RDW SD 46.5 35.7 - 48.1 fL [facility] NRBC abs 0.00 0.00 - 0.01 K/cumm [facility] Blood 12/17/2024 11:3 3 AM CDT 12/17/2024 2:01 PM CDT us Yandy Cosby MD LAB BLOOD ORDERABLES Final Result Performing Organization Address City/[facility]/ZIP Co de Phone Number [facility] Department [place] [address] * Ferritin (12/17/2024 11:33 AM CDT) Ferritin 23 13 - 150 ng/mL Blood 12/17/2024 11:3 3 AM CDT 12/17/2024 1:59 PM CDT us Yandy Cosby MD LAB BLOOD ORDERABLES Final Result [facility] Department [place] [address] * Pap Only (07/26/2022 3:58 PM TRAFFIC MAINTENANCE OFFICER) Thin prep (Pap test) 07/26/2022 3:58 PM TRAFFIC MAINTENANCE OFFICER 07/26/2022 5:46 PM TRAFFIC MAINTENANCE OFFICER Narrative PATHOLOGY [facility] - 08/05/2022 4:37 PM TRAFFIC MAINTENANCE OFFICER EPIC results best viewed via link to PDF [facility] [place] [address] Note to Patients: This report may contain [...] REPORT FINAL Patient Name: HANSA BARBOZA Gender: Carline : 1995 (Age: 26) Address: [address] [place] [id number] Hospital #: [id number] Service: SENIOR STAFF SPECIALIZED EMPLOYMENT Location: Patient Type: [facility] SPECIMEN Taken: 07/26/2022 Received: 07/26/2022 Accessioned: 07/27/2022 Reported: 08/05/2022 Physician(s): Devorah Carrera M.D. FINAL INTERPRETATION SOURCE OF SPECIMEN: Liquid based Thin Prep pap STATEMENT OF ADEQUACY: - Satisfactory for evaluation - Endocervical cells/transformation zone sample present GENERAL CATEGORY: - Negative for squamous intraepithelial lesion or malignancy This specimen has been rescreened in accordance with this laboratory's Currency Exchange Specialist Program. /08/05/2022 16:37 TAMIKO Mcclain(ASCP) Report Electronically Reviewed and Signed Out By Aixa Edgar MS, CT (ASCP) 08/05/2022 16:37:25 Cervicovaginal Cytology (Pap [...] NILM. The Gonorrhea/Chlamydia test was performed by [facility], [address] [place] [address]. Report Images and scanned documents, if included only viewable in PDF version The performance characteristics of some immunohistochemical stains, in-situ hybridization and fluorescence in-situ hybridization tests and immunophenotyping by flow cytometry cited in this report (if any) were determined by the Surgical Pathology Department at [facility] as part of an ongoing senior quality technician program and in compliance with federally mandated [...] determined by the Surgical Pathology Department of [facility]. It has not been cleared or approved by the U. S. Food and Drug Administration. Devorah Carrera SALES CLERK LAB CYTOLOGY ORDERABLES Fi nal Result PATHOLOGY [facility] 3rd Floor [place], [place] [phone] from Last 3 Months or Most Recently Relevant to Health Maintenance Insurance [facility] [employer] Advance Directives For more information, please contact: [phone] * Full Code (Latest Code Status on [...] c ase of cardiopulmonary arrest Care Teams Kiln Tester Relationship Specialty Start Date End Date Daniel Camara MD [address] [place] [address] PCP - General 12/14/17 Daniel Camara MD [address] [place] [address] 10/25/17 Chris Grant MD [address] [place] [address] 09/04/17
--- OUTSIDE RECORDS SUMMARY | 2024-12-25 01:41 | XMS_ITS | Encounter Summary ---
Author Organization [facility] Address [address] [facility] [address] [place] [address] Phone Care Team Providers Care Combiner Operator Name Role Phone Daniel Camara MD Primary Care Provider [phone] Unknown, Notinfile Primary Care Provider Unavail able Chris Grant MD Primary Care Provider [phone] Aston Gomes MD Primary Care Provider [phone] Daniel Camara MD Primary Care Provider [phone] Unknown, Notinfile Primary Care Provider Unavail able Chris Grant MD Primary Care Provider [phone] Chris Grant MD Primary Care Provider [phone] Unknown, Notinfile Primary Care Provider Unavail able Chris Grant MD Primary Care Provider [phone] Unknown, Notinfile Primary Care Provider Unavail able Daniel Camara MD Unavailable Daniel Camara MD Unavailable Chris Grant MD Unavailable [phone] Chris Grant MD Unavailable [phone] Chris Grant MD Unavailable [phone] Chris Grant MD Primary Care Provider [phone] Daniel Camara MD Primary Care Provider [phone] Aston Gomes MD Primary Care Provider [phone] Chris Grant MD Primary Care Provider Daniel Camara MD Primary Care Provider [phone] Encounter Details Date Type Department Care Team (Latest Contact Info) Description 08/19/2017 Orders Only [facility] CONVERSION Scanning, Provider Social History Tobacco Use Types Packs/Day Years Used Date Smoking Tobacco: Never Comments Unknown Sex and Gender Information Value Date Recorded Sex Assigned at Not on file Legal Sex Female 10:35 PM CLINICAL INFORMATICS SPEC Gender Identity Not on file Sexual Orientation Not on file documented as of this encounter Plan of Treatment Not on file documented as of this encounter Procedures Procedure Name Priority Date/Time Associated Diagnosis Comments OBSTETRIC/GYNECOLOGY ULTRASONOGRAPHY REPORT 08/19/2017 12:47 PM CLINICAL INFORMATICS SPEC documented in this encounter Results * OBSTETRIC/GYNECOLOGY ULTRASONOGRAPHY REPORT (08/19/2017 12:47 PM CLINICAL INFORMATICS SPEC) Anatomical Region Laterality Modality Ultrasound us Provider Scanning IMG OB US PROCEDURES Final Res ult documented in this encounter Visit Diagnoses Not on filedocumented in this encounter Additional Health Concerns Infection Onset Date Last Indicated Resolved Time COVID: Suspected 07/14/2024 07/14/2024 07/14/2024 8:59 PM CLINICAL INFORMATICS SPEC documented as of this encounter Care Teams Combiner Operator Relationship Specialty Start Date End Date Daniel Camara MD [address] [place] [address] PCP - General 08/19/17 09/03/17 Unknown, Notinfile PCP - General 09/04/17 09/12/17 Chris Grant MD PCP - General 09/13/17 10/11/17 Aston Gomes MD [facility] [address] [place] [address] PCP - General 10/12/17 10/13/17 Daniel Camara MD [address] [place] [address] PCP - General 10/14/17 10/24/17 Unknown, Notinfile PCP - General 10/25/17 10/27/17 Chris Grant MD PCP - General 10/28/17 11/07/17 Chris Grant MD PCP - General 11/08/17 11/08/17 Unknown, Notinfile PCP - General 11/09/17 11/09/17 Chris Grant MD PCP - General 11/10/17 11/10/17 Unknown, Notinfile PCP - General 11/11/17 11/14/17 Chris Grant MD PCP - General 11/15/17 11/28/17 Daniel Camara MD [address] [place] [address] PCP - General 11/29/17 12/05/17 Aston Gomes MD [facility] [address] [place] [address] PCP - General 12/06/17 12/07/17 Chris Grant MD PCP - General 12/08/17 12/13/17 Daniel Camara MD [address] [place] [address] PCP - General 12/14/17 Daniel Camara MD [address] [place] [address] 09/04/17 10/11/17 Daniel Camara MD [address] [place] [address] 10/25/17 Chris Grant MD 07/22/17 09/03/17 Chris Grant MD 10/12/17 10/24/17 Chris Grant MD 09/04/17 documented as of this encounter
--- OUTSIDE RECORDS SUMMARY | 2024-12-25 01:41 | XMS_ITS | Encounter Summary ---
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 Name Role Phone Daniel Camara MD Unavailable Chris Grant MD Unavailable [phone] Daniel Camara MD Primary Care Provider [phone] Aston Gomes MD Primary Care Provider [phone] Chris Grant MD Primary Care Provider [phone] Daniel Camara MD Primary Care Provider [phone] Encounter Details Date Type Department Care Team (Latest Contact Info) Description 11/29/2017 Orders Only [facility] CONVERSION Scanning, Provider Social History Tobacco Use Types Packs/Day Years Used Date Smoking Tobacco: Never Comments Unknown Sex and Gender Information Value Date Recorded Sex Assigned at Not on file Legal 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 Gender Identity Not on file Sexual Orientation Not on file documented as of this encounter Plan of Treatment Not on file documented as of this encounter Procedures Procedure Name Priority Date/Time Associated Diagnosis Comments OBSTETRIC/GYNECOLOGY ULTRASONOGRAPHY REPORT 11/29/2017 4:04 PM CDT documented in this encounter Results * OBSTETRIC/GYNECOLOGY ULTRASONOGRAPHY REPORT (11/29/2017 4:04 PM CDT) Anatomical Region Laterality Modality Ultrasound us Provider Scanning IMG OB US PROCEDURES Final Res ult documented in this encounter Visit Diagnoses Not on filedocumented in this encounter Additional Health Concerns Infection Onset Date Last Indicated Resolved Time COVID: Suspected 07/14/2024 07/14/2024 07/14/2024 8:59 PM DISTRIBUTION SPECIALIST documented as of this encounter Care Teams Machine Hoop Maker Helper Relationship Specialty Start Date End Date Daniel Camara MD [address] [place] [address] PCP - General 11/29/17 12/05/17 Aston Gomes MD [facility] [address] [place] [address] PCP - General 12/06/17 12/07/17 Chris Grant MD [address] [place], [place] [id number] PCP - General 12/08/17 12/13/17 Daniel Camara MD [address] [place] [address] PCP - General 12/14/17 Daniel Camara MD [address] [place] [address] 10/25/17 Chris Grant MD [address] [place] [address] 09/04/17 documented as of this encounter
--- OUTSIDE RECORDS SUMMARY | 2024-12-25 01:41 | XMS_ITS | Encounter Summary ---
Author Organization [facility] Address [address] [facility] [address] [place] [address] Phone Care Team Providers Care Hand Laminator Name Role Phone Daniel Camara MD Primary Care Provider [phone] Unknown, Notinfolivia Primary Care Provider Unavail able Chris Grant MD Primary Care Provider [phone] Chris Grant MD Primary Care Provider [phone] Unknown, Notinfolivia Primary Care Provider Unavail able Chris Grant MD Primary Care Provider [phone] Unknown, Notinfile Primary Care Provider Unavail able Daniel Camara MD Unavailable Chris Grant MD Unavailable [phone] Chris Grant MD Unavailable [phone] Chris Grant MD Primary Care Provider [phone] Daniel Camara MD Primary Care Provider [phone] Aston Gomes MD Primary Care Provider [phone] Chris Grant MD Primary Care Provider [phone] Daniel Camara MD Primary Care Provider [phone] Encounter Details Date Type Department Care Team (Latest Contact Info) Description 10/14/2017 Orders Only [facility] CONVERSION Scanning, Provider Social History Tobacco Use Types Packs/Day Years Used Date Smoking Tobacco: Never Comments Unknown Sex and Gender Information Value Date Recorded Sex Assigned at Not on file 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 Gender Identity Not on file Sexual Orientation Not on file documented as of this encounter Plan of Treatment Not on file documented as of this encounter Procedures Procedure Name Priority Date/Time Associated Diagnosis Comments OBSTETRIC/GYNECOLOGY ULTRASONOGRAPHY REPORT 11/08/2017 1:05 PM CDT OBSTETRIC/GYNECOLOGY ULTRASONOGRAPHY REPORT 10/25/2017 5:21 PM CDT OBSTETRIC/GYNECOLOGY ULTRASONOGRAPHY REPORT 10/14/2017 3:53 PM CDT documented in this encounter Results * OBSTETRIC/GYNECOLOGY ULTRASONOGRAPHY REPORT (11/08/2017 1:05 PM CDT) Anatomical Region Laterality Modality Ultrasound us Provider Scanning IMG OB US PROCEDURES Final Res ult * OBSTETRIC/GYNECOLOGY ULTRASONOGRAPHY REPORT (10/25/2017 5:21 PM CDT) Anatomical Region Laterality Modality Ultrasound us Provider Scanning IMG OB US PROCEDURES Final Res ult * OBSTETRIC/GYNECOLOGY ULTRASONOGRAPHY REPORT (10/14/2017 3:53 PM CDT) Anatomical Region Laterality Modality Ultrasound us Provider Scanning IMG OB US PROCEDURES Final Res ult documented in this encounter Visit Diagnoses Not on filedocumented in this encounter Additional Health Concerns Infection Onset Date Last Indicated Resolved Time COVID: Suspected 07/14/2024 07/14/2024 07/14/2024 8:59 PM 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 documented as of this encounter Care Teams Hand Laminator Relationship Specialty Start Date End Date Daniel Camara MD [address] [facility] [address] [place] [address] PCP - General 10/14/17 10/24/17 Unknown, Notinfile PCP - General 10/25/17 10/27/17 Chris Grant MD PCP - General 10/28/17 11/07/17 Chris Grant MD PCP - General 11/08/17 11/08/17 Unknown, Notinfile PCP - General 11/09/17 11/09/17 Chris Grant MD PCP - General 11/10/17 11/10/17 Unknown, Notinfile PCP - General 11/11/17 11/14/17 Chris Grant MD PCP - General 11/15/17 11/28/17 Daniel Camara MD [address] [place] [address] PCP - General 11/29/17 12/05/17 Aston Gomes MD [facility] [address] [place] [address] PCP - General 12/06/17 12/07/17 Chris Grant MD PCP - General 12/08/17 12/13/17 Daniel Camara MD [address] [place], [place] [id number] PCP - General 12/14/17 Daniel Camara MD [address] [facility] [address] [place] [address] 10/25/17 Chris Grant MD 10/12/17 10/24/17 Chris Grant MD 09/04/17 documented as of this encounter
[2024-12-25 01:45] LABS: Alanine Aminotransferase 18 U/L (6-35); Albumin Level 4.1 g/dL (3.5-5.1); Alkaline Phosphatase 77 U/L (38-126); Anion Gap 6 mmol/L (4-12); Aspartate Amino Transferase 23 U/L (14-36); Bilirubin,Total 0.2 mg/dL (0.2-1.3); Blood Urea Nitrogen 14 mg/dL (7-17); Calcium 9.1 mg/dL (8.4-10.2); Carbon Dioxide 24 mmol/L (22-30); Chloride 108 mmol/L (98-107); Estimated Glomerular Filt Rate > 60; Glucose 96 mg/dL (65-110); Lipase 102 U/L (23-300); Sodium 138 mmol/L (137-145); Total Protein 7.1 g/dL (6.3-8.2)
[2024-12-25 01:48] LABS: D Dimer < 0.27 ug/mL (<0.48)
[2024-12-25 01:56] LABS: Troponin I < 0.012 ng/mL (0.000-0.034)
[2024-12-25 01:57] LABS: Basophils Percent Auto 0.5 % (0.2-1.2); Eosinophils Absolute Auto 0.1 K/mm3 (0-0.3); Eosinophils Percent Auto 1.3 % (0-4.4); Hematocrit 36.3 % (37.0-47.0); Immature Granulocyte Absolute 0.01 K/mm3 (0.00-0.031); Immature Granulocyte Percent A 0.1 % (0-0.5); Lymphocytes Absolute Auto 2.05 K/mm3 (0.9-3.2); Lymphocytes Percent Auto 24.4 % (18.3-44.2); Mean Corpuscular HGB Conc 33.1 g/dl (32-36); Mean Corpuscular Hemoglobin 31.5 pg (26-34); Mean Corpuscular Volume 95.3 fl (80-100); Mean Platelet Volume 9.6 fl (7.4-10.4); Monocytes Absolute Auto 0.7 K/mm3 (0.1-0.6); Monocytes Percent Auto 8.8 % (2.6-8.5); Neutrophils Absolute Auto 5.4 K/mm3 (1.3-6.7); Neutrophils Percent Auto 64.9 % (45.5-73.1); Platelet Count Result 345 k/mm3 (150-375); Red Blood Count 3.81 M/mm3 (4.2-5.4); Red Cell Distribution Width 13.5 % (11.5-14.5); White Blood Count 8.4 K/mm3 (4.5-10.0)
[2024-12-25] MEDS: ACETAMINOPHEN 500 MG TABLET 1000 MG PO (01:57)
[2024-12-25] MEDS: METOCLOPRAMIDE HCL INJ 10 MG/2 ML VIAL IV PUSH (01:58)
[2024-12-25] MEDS: diphenhydrAMINE HCl INJ 50 MG/ML VIAL 25 MG IV PUSH (01:59)
[2024-12-25] MEDS: dexAMETHasone SOD PHOS INJ 10 MG/ML 1 ML VIAL IV PUSH (01:59)
[2024-12-25] MEDS: SODIUM CHLORIDE 0.9% IV 1,000 ML 999 ML IV CONT (02:00)
[2024-12-25] MEDS: KETOROLAC 30 MG/ML VIAL (*BKC) IV PUSH (02:53)
[2024-12-25 02:58] VITALS: BP 100/54; PULSE 76; RESP 14; O2SAT 99
[2024-12-25 03:06] VITALS: BP 100/54; PULSE 76; RESP 14; O2SAT 99
== END 2024-12-25 03:08 | disposition home or self-care (01) ==
PROVIDERS: Emergency Medicine; Emergency Provider Physician Assistant
DX: G43.909 Migraine, unspecified, not intractable, without status migrainosus (principal); R07.89 Other chest pain
CPT/HCPCS: 36415; 70450; 71046; 80053; 83690; 84484; 85025; 85380; 85610; 85730; 93005; 96361; 96374; 96375; 99284; A9270; J1100; J1200; J1885; J2765; J7030